=== PATIENT | male | born 1960 | race Caucasian/White ===

== ENCOUNTER 2017-08-06 08:49 | Day surgery (SDC) | payer OTHER ==
[~2017-08-06 08:49] MED LIST: DIPHENHYDRAMINE HCL 50 MG/ML VIAL ONE; EPINEPHRINE INJ 1 MG/10 ML DISP.SYRIN ONE; FENTANYL CITRATE INJ/PF 100 MCG/2 ML AMPUL ONE; FLUMAZENIL INJ 0.5 MG/5 ML VIAL ONE; GLUCAGON,HUMAN RECOMB 1 MG INJ ONE; NALOXONE HCL INJ/PF 0.4 MG/1 ML SDV ONE; ONDANSETRON HCL INJ/PF 4 MG/2 ML SDV ONE
[2017-08-06] MEDS: MIDAZOLAM 2 MG/2 ML INJ ONE ×2 (09:47→09:51)
[2017-08-06 11:04] VITALS: BP 132/78
--- NOTE | 2017-08-06 11:26 | Operative Report ---
Operative Report DATE OF SURGERY: 08/06/17 Operative Report: The risks benefits and alternatives of the procedure explained to the patient in detail and informed consent is obtained .A GIF Olympus video scope was inserted into the patient's mouth and hypopharynx, the esophagus is identified intubated and insufflated ,the scope was then advanced through the esophagus stomach and duodenum, retroflexion maneuver is done, the esophagus stomach and first and second portions of the duodenum examined PREOPERATIVE DIAGNOSIS: Dyspepsia evaluate for possible gastric sleeve surgery POSTOPERATIVE DIAGNOSIS: Possible singular gastric varix that is noted. No esophageal varices. Mild gastritis status post biopsy rule out Helicobacter pylori OPERATION: EGD with biopsy SURGEON: CORINE SOSA ANESTHESIA: Moderate Sedation - 4 mg of Versed, 50 mcg of fentanyl. Conscious sedation monitoring time 30 minutes. TISSUE REMOVED OR ALTERED: Gastric mucosal specimen obtained COMPLICATIONS: None. ESTIMATED BLOOD LOSS: None. INTRAOPERATIVE FINDINGS: As described above. PROCEDURE: Patient tolerated procedure well. No immediate postprocedure complications are noted. Patient discharged in good condition. Discharge date 08/06/2017. Discharge diet: Regular. Discharge activity: Regular. 2-3 week follow-up to discuss findings. We will wait on biopsies. Patient is instructed to call the office or proceed to the emergency room should there be any further problems or questions.
== END 2017-08-06 11:05 | disposition home or self-care (01) ==
LOC: END 08:49
PROVIDERS: ATTEND Internal Medicine Gastroenterology
PROC: 0DB68ZX Excision of Stomach, Via Natural or Artificial Opening Endoscopic, Diagnostic (ICD-10-PCS; principal; 2017-08-06 08:30)
DX: K74.60 Unspecified cirrhosis of liver (principal); K29.70 Gastritis, unspecified, without bleeding; E66.01 Morbid (severe) obesity due to excess calories; E03.9 Hypothyroidism, unspecified; F32.9 Major depressive disorder, single episode, unspecified; E78.5 Hyperlipidemia, unspecified; E11.22 Type 2 diabetes mellitus with diabetic chronic kidney disease; I12.9 Hypertensive chronic kidney disease with stage 1 through stage 4 chronic kidney disease, or unspecified chronic kidney disease; N18.3 Chronic kidney disease, stage 3 (moderate); E11.42 Type 2 diabetes mellitus with diabetic polyneuropathy; Z99.81 Dependence on supplemental oxygen; N40.0 Benign prostatic hyperplasia without lower urinary tract symptoms; G43.109 Migraine with aura, not intractable, without status migrainosus; G47.30 Sleep apnea, unspecified; Z68.43 Body mass index [BMI] 50.0-59.9, adult; Z79.899 Other long term (current) drug therapy; Z79.82 Long term (current) use of aspirin; Z79.4 Long term (current) use of insulin; Z87.891 Personal history of nicotine dependence
CPT/HCPCS: 43239; 82962; 88305 ×2; J2250; J3010; J0171; J1200; J1610; J2310; J2405; J3490

== ENCOUNTER 2017-09-06 09:15 | Day surgery (SDC) | payer OTHER ==
[~2017-09-06 09:15] MED LIST changes: -DIPHENHYDRAMINE HCL 50 MG/ML VIAL ONE; -EPINEPHRINE INJ 1 MG/10 ML DISP.SYRIN ONE; -FENTANYL CITRATE INJ/PF 100 MCG/2 ML AMPUL ONE; -FLUMAZENIL INJ 0.5 MG/5 ML VIAL ONE; -GLUCAGON,HUMAN RECOMB 1 MG INJ ONE; -NALOXONE HCL INJ/PF 0.4 MG/1 ML SDV ONE; -ONDANSETRON HCL INJ/PF 4 MG/2 ML SDV ONE; +PROPOFOL INJ 200 MG/20 ML VIAL IV ONE
[2017-09-06 11:01] VITALS: BP 153/79
--- NOTE | 2017-09-06 12:25 | Operative Report ---
Operative Report DATE OF SURGERY: 09/06/17 Operative Report: The risks, benefits and alternatives of the procedure including risks of bleeding, perforation requiring surgery are explained to the patient in detail and informed consent is obtained. The patient is placed in the left, lateral decubital position. Patient was taken to the endoscopy suite. Timeout was called. Propofol medications administered. A rectal examination is done which did not reveal any masses, tears or fissures. An Olympus videoscope was inserted into the patient's rectum. The scope was then carefully advanced all the way to the cecum. The cecum was identified by the usual anatomical landmarks including the ileocecal valve as well as the appendiceal office. Photodocumentation was obtained. The scope was then sequentially pulled back via the various segments of the colon including the ascending colon, hepatic flexure, transverse colon, splenic flexure, descending colon finding to the rectosigmoid portions of the colon. Retroflexion maneuvers performed. PREOPERATIVE DIAGNOSIS: Change in bowel habits rule out collagenous, lymphocytic , microscopic colitis. POSTOPERATIVE DIAGNOSIS: Right side colon biopsy obtained. Internal hemorrhoids OPERATION: Colonoscopy with biopsy SURGEON: CORINE SOSA ANESTHESIA: LMAC TISSUE REMOVED OR ALTERED: As noted above. COMPLICATIONS: None. ESTIMATED BLOOD LOSS: None. INTRAOPERATIVE FINDINGS: As described above. PROCEDURE: Patient tolerated the procedure well. No immediate postprocedure complications are noted. Patient discharged in good condition. Discharge date 09/06/2017. Discharge diet: Regular. Discharge activity: Regular. 2-3 week follow-up to discuss findings. Patient is instructed to call the office or proceed to the emergency room should there be any further problems or questions. We will wait on pathology. Surveillance colonoscopy 10 years.
== END 2017-09-06 10:51 | disposition home or self-care (01) ==
LOC: END 09:15
PROVIDERS: ATTEND Internal Medicine Gastroenterology
PROC: 0DBF8ZX Excision of Right Large Intestine, Via Natural or Artificial Opening Endoscopic, Diagnostic (ICD-10-PCS; principal; 2017-09-06 11:00)
DX: K57.30 Diverticulosis of large intestine without perforation or abscess without bleeding (principal); K64.8 Other hemorrhoids; E03.9 Hypothyroidism, unspecified; I12.9 Hypertensive chronic kidney disease with stage 1 through stage 4 chronic kidney disease, or unspecified chronic kidney disease; E11.22 Type 2 diabetes mellitus with diabetic chronic kidney disease; N18.3 Chronic kidney disease, stage 3 (moderate); G47.30 Sleep apnea, unspecified; F32.0 Major depressive disorder, single episode, mild; K74.60 Unspecified cirrhosis of liver; E87.5 Hyperkalemia; G43.109 Migraine with aura, not intractable, without status migrainosus; E11.42 Type 2 diabetes mellitus with diabetic polyneuropathy; Z79.4 Long term (current) use of insulin; Z87.891 Personal history of nicotine dependence; Z79.82 Long term (current) use of aspirin; Z79.51 Long term (current) use of inhaled steroids; Z99.81 Dependence on supplemental oxygen
CPT/HCPCS: 45380; 82962; 88305 ×2; J2704; 810

== ENCOUNTER 2017-12-02 14:36 | Emergency (ER) | payer SELFPAY ==
--- NOTE | 2017-12-02 15:47 | ER Document Report ---
ED General - General Chief Complaint: Shortness Of Breath Stated Complaint: WEIGHT GAIN/ABNORMAL LABS Time Seen by Provider: 12/02/17 15:29 TRAVEL OUTSIDE OF THE [place] IN LAST 30 DAYS: No - Related Data Allergies/Adverse Reactions: No Known Allergies Allergy (Verified 12/02/17 14:36) Past Medical History - General Information source: Patient, Relative - Social History Smoking Status: Former Smoker Cigarette use (# per day): No Chew tobacco use (# tins/day): No Smoking Education Provided: No Drug Abuse: None Lives with: Family Family History: Hypertension - Past Medical History Cardiac Medical History: Reports: Hx Coronary Artery Disease - HYPERLIPIDEMIA , Hx Hypertension Denies: Hx Heart Attack Pulmonary Medical History: Reports: Hx COPD Denies: Hx Asthma, Hx Bronchitis, Hx Pneumonia Neurological Medical History: Reports: Hx Migraine. Denies: Hx Cerebrovascular Accident, Hx Seizures Endocrine Medical History: Reports: Hx Diabetes Mellitus Type 2, Hx Hypothyroidism Renal/ Medical History: Reports: Hx Renal Insufficiency, Other - proteinuria Malignancy Medical History: Reports None GI Medical History: Reports: Hx Cirrhosis, Other - hep C-"cured" Musculoskeltal Medical History: Denies Hx Arthritis Skin Medical History: Reports None Psychiatric Medical History: Reports: Hx Depression Past Surgical History: Reports: None - Immunizations Hx Diphtheria, Pertussis, Tetanus Vaccination: Yes Hx Pneumococcal Vaccination: 08/01/17 Physical Exam - Vital signs Vitals: Temp Pulse Resp BP Pulse Ox 98.1 F 86 18 152/76 H 96 12/02/17 14:57 12/02/17 14:57 12/02/17 14:57 12/02/17 14:57 12/02/17 14:57 - Notes Notes: PHYSICAL EXAMINATION: GENERAL: Well-appearing, well-nourished and in no acute distress. HEAD: Atraumatic, normocephalic. EYES: Pupils equal round and reactive to light, extraocular movements intact, sclera anicteric, conjunctiva are normal. ENT: Nares patent, oropharynx clear without exudates. Moist mucous membranes. NECK: Normal range of motion, supple without lymphadenopathy LUNGS: Breath sounds clear to auscultation bilaterally and equal. No wheezes rales or rhonchi. HEART: Regular rate and rhythm 4/6 murmur ABDOMEN: Soft, nontender, nondistended abdomen. No guarding, no rebound. No masses appreciated. Edema to abdominal wall bilateral lower quadrants Musculoskeletal: Normal range of motion, +2 pitting edema bilateral lower extremities all the way up to his hip area no cyanosis. NEUROLOGICAL: Cranial nerves grossly intact. Normal speech. Normal sensory, motor exams PSYCH: Normal mood, normal affect. SKIN: Warm, Dry, normal turgor, no rashes or lesions noted. Course - Re-evaluation Re-evalutation: 12/02/17 15:45 I did see the patient. He did not have much information besides a [place] lab sheet. I did call over to Merary trey's office [phone] because he had just come from her office. She is supposed to fax me over his med list as well as his past medical history as the patient does not know this information. 12/02/17 17:[address] Lam he states with the patient on Lasix daily and have him follow -up as an outpatient. Patient's to call the office in the morning as I told the patient and his family member. I did talk to the patient extensively regarding his diet and the need to lose weight. He did seem to take the information to heart. Had lost a lot of weight was down to 220 pounds and felt great. I did tell him to cut out any sugary or processed foods from his diet and stick to lean meats fruits and veggies as well as to start walking even with this for 5-10 minutes daily. I did mention to the patient has been started on Lasix. At that moment he did state that he is on Lasix although not every day. I told him for the next few days to take it consistently. Patient is to call Dr. Lam in the morning for an appointment in the next few days. He is to return to the emergency department if he has worsening symptoms. He is to continue his Klor-Con as previously prescribed. - Vital Signs Vital signs: Temp Pulse Resp BP Pulse Ox 98.1 F 86 18 152/76 H 96 12/02/17 14:57 12/02/17 14:57 12/02/17 14:57 12/02/17 14:57 12/02/17 14:57 - Laboratory Result Diagrams: 12/02/17 16:04 12/02/17 16:04 Laboratory results interpreted by me: 12/02/17 12/02/17 12/02/17 16:04 16:04 16:04 RBC 3.92 L Hgb 10.9 L Hct 33.0 L RDW 15.3 H Plt Count 89 L Eosinophils % 6.3 H Chloride 113 H BUN 29 H Creatinine 2.05 H Est GFR ( Amer) 41 L Est GFR (Non-Af Amer) 34 L Glucose 170 H Alkaline Phosphatase 242 H Total Protein 4.9 L Albumin 2.4 L Urine Protein >=500 H Urine Glucose (UA) >=500 H - Diagnostic Test Radiology reviewed: Image reviewed, Reports reviewed Radiology results interpreted by me: 12/02/17 17:02 no acute findings chest x-ray - EKG Interpretation by Me EKG shows normal: Sinus rhythm - 87 When compared to previous EKG there are: Previous EKG unavailable Discharge - Discharge Clinical Impression: Edema extremities, Hypoalbuminemia, Chronic renal insufficiency, stage III ( moderate), Anemia Condition: Stable Disposition: HOME, SELF-CARE Instructions: Edema, Peripheral ([facility]), Kidney Function Abnormality ([facility]) Additional Instructions: Please take 40 mg of lasix daily for the next 4 days. The emergency department if you have worsening symptoms, inability to urinate, fevers, shortness of breath or any other concerns. Your copy of all your paperwork done here as well as the chart from Merary yang's office. Please bring this to all doctor's appointments including your appointment with Dr. Lam. Referrals: MERARY YANG PA-C [Primary Care Provider] - Follow up as needed Arabella LAM MD [ACTIVE STAFF] - Follow up tomorrow (Call office in the a.m. for appointment in the next few days. Please take Lasix 40 mg by mouth daily for the next 4 days.)
--- NOTE | 2017-12-02 16:05 | RADIOLOGY REPORT (SQ) ---
EXAM DESCRIPTION: CHEST PA/LAT COMPLETED DATE/TIME: 12/02/2017 3:45 pm REASON FOR STUDY: sob COMPARISON: None. EXAM PARAMETERS: NUMBER OF VIEWS: two views TECHNIQUE: Digital Frontal and Lateral radiographic views of the chest acquired. RADIATION DOSE: NA LIMITATIONS: none FINDINGS: LUNGS AND PLEURA: No opacities, masses or pneumothorax. No pleural effusion. MEDIASTINUM AND HILAR STRUCTURES: No masses or contour abnormalities. HEART AND VASCULAR STRUCTURES: Heart normal size. No evidence for failure. BONES: No acute findings. HARDWARE: Clips right upper quadrant post cholecystectomy OTHER: No other significant finding. IMPRESSION: NO SIGNIFICANT RADIOGRAPHIC FINDING IN THE CHEST. TECHNICAL DOCUMENTATION: JOB ID: [id number] [employer]- All Rights Reserved
[2017-12-02 16:25] LABS: ABSOLUTE EOSINOPHILS # (AUTO) 0.3 10^3/uL (0.0-0.6); ABSOLUTE LYMPHOCYTES (AUTO) 0.8 10^3/uL (0.5-4.7); ABSOLUTE MONOCYTES (AUTO) 0.4 10^3/uL (0.1-1.4); ABSOLUTE NEUT (AUTO) 2.5 10^3/uL (1.7-8.2); BASOPHILS % (AUTO) 0.8 % (0-2); EOSINOPHILS % (AUTO) 6.3 % (0-6); HEMOGLOBIN 10.9 g/dL (13.5-17.0); LYMPHOCYTES % (AUTO) 19.9 % (13-45); MEAN CORPUSCULAR HEMOGLOBIN 27.9 pg (27.0-33.4); MEAN CORPUSCULAR HGB CONC 33.1 g/dL (32.0-36.0); MEAN CORPUSCULAR VOLUME 84 fl (80-97); MONOCYTES % (AUTO) 9.4 % (3-13); RED BLOOD COUNT 3.92 10^6/uL (4.35-5.55); RED CELL DISTRIBUTION WIDTH 15.3 % (11.5-14.0); SEGMENTED NEUTROPHILS % (AUTO) 63.6 % (42-78); TOTAL CELLS COUNTED % (AUTO) 100 %
[2017-12-02 16:29] LABS: PLATELET COUNT 89 10^3/uL (150-450)
[2017-12-02 16:36] LABS: ALANINE AMINOTRANSFERASE 50 U/L (21-72); ALBUMIN 2.4 g/dL (3.5-5.0); ALKALINE PHOSPHATASE 242 U/L (38-126); ANION GAP 5 (5-19); ASPARTATE AMINO TRANSFERASE 41 U/L (17-59); BILIRUBIN,DIRECT 0.2 mg/dL (0.0-0.4); BILIRUBIN,TOTAL 0.3 mg/dL (0.2-1.3); BLOOD UREA NITROGEN 29 mg/dL (7-20); CALCIUM 8.8 mg/dL (8.4-10.2); CARBON DIOXIDE 23 mmol/L (22-30); CHLORIDE 113 mmol/L (98-107); GLUCOSE 170 mg/dL (75-110); MAGNESIUM 1.9 mg/dL (1.6-2.3); POTASSIUM 4.5 mmol/L (3.6-5.0); SODIUM 140.6 mmol/L (137-145); TOTAL PROTEIN 4.9 g/dL (6.3-8.2)
[2017-12-02 16:39] LABS: ALCOHOL < 10 mg/dL (NONE DETECTED)
[2017-12-02 16:47] LABS: NT PRO BNP 220 pg/mL (5-900)
[2017-12-02 16:50] LABS: TROPONIN I < 0.012 ng/mL
[2017-12-02] MEDS ORDERED: FUROSEMIDE INJ/PF 20 MG/2 ML SDV IV ONE (16:56)
--- NOTE | 2017-12-02 17:23 | EKG REPORT ---
SEVERITY:- NORMAL ECG - SINUS RHYTHM : Confirmed by: Krzysztof Avalos 02-Dec-2017 17:22:31
[2017-12-02 17:36] LABS: APPEARANCE,URINE CLEAR; BILIRUBIN,URINE NEGATIVE (NEGATIVE); COLOR,URINE YELLOW; GLUCOSE, URINE >=500 mg/dL (NEGATIVE); KETONES,URINE NEGATIVE (NEGATIVE); LEUKOCYTE ESTERASE,URINE NEGATIVE (NEGATIVE); NITRITE,URINE NEGATIVE (NEGATIVE); PROTEIN,URINE >=500 mg/dL (NEGATIVE); UROBILINOGEN,URINE NEGATIVE mg/dL (<2.0)
[2017-12-02 18:03] VITALS: BP 139/83
== END 2017-12-02 18:11 | disposition home or self-care (01) ==
LOC: ER 14:36
DX: R60.9 Edema, unspecified (principal); D63.1 Anemia in chronic kidney disease; E88.09 Other disorders of plasma-protein metabolism, not elsewhere classified; N18.3 Chronic kidney disease, stage 3 (moderate); R06.02 Shortness of breath; Z87.891 Personal history of nicotine dependence; E11.22 Type 2 diabetes mellitus with diabetic chronic kidney disease; I12.9 Hypertensive chronic kidney disease with stage 1 through stage 4 chronic kidney disease, or unspecified chronic kidney disease; J44.9 Chronic obstructive pulmonary disease, unspecified
CPT/HCPCS: 93005; 99285; 96374; 36415; 80307; 82140; 83735; 82570; 85025; 80053; 81001; 84484; 83880; 71046; 93010; J1940

== ENCOUNTER → 2018-04-21 | Outpatient (CLI) | payer BC ==
--- NOTE | 2018-04-21 19:20 | XCELERA REPORT ---
[address] [address] Transthoracic Echocardiogram Report Name: PATO GARNETT JR Age: 58 yrs Gender: Male : 1960 Patient Status: Outpatient Patient Location: [facility] Study Date: 04/21/2018 09:17 AM Height: 67 in Weight: 311 lb BSA: 2.4 m2 Procedure: A two-dimensional transthoracic echocardiogram with color flow and Doppler was performed. Study Quality: Technically suboptimal. Reason For Study: MURMUR History: MURMUR. Ordering Physician: MERARY ASH PA-C Performed By: Nate Ibanez Interpretation Summary Study Quality: Technically suboptimal. The left ventricle is normal in size. There is normal left ventricular wall thickness. LV EF is > than 60% Left ventricular systolic function is normal. Doppler measurements suggest impaired left ventricular relaxation, which is associated with grade I/IV or mild diastolic dysfunction The left ventricular wall motion is normal. There is no thrombus. The right ventricle is not well visualized secondary to technical limitations The left atrial size is normal. The interatrial septum is intact with no evidence for an atrial septal defect. There is no evidence of mitral valve prolapse. There is no vegetation seen on the mitral valve. There is no mitral valve stenosis. There is no mitral regurgitation noted. There is no aortic valvular vegetation. There is mild aortic stenosis There is a peak gradient of 16 mm of Hg. There is no LVOT obstruction. No hemodynamically significant valvular aortic stenosis. No aortic regurgitation is present. There is no tricuspid stenosis. There is a trace amount of tricuspid regurgitation Right ventricular systolic pressure is normal. RVSP is 24 mm of Hg , with RA mean of 5. The aortic root is not well visualized but is probably normal size. There is no pericardial effusion. MMode/2D Measurements & Calculations RVDd: 4.1 cm LVIDd: 4.2 cm FS: 36.5 % Ao root diam: 3.2 cm IVSd: 0.95 cm LVIDs: 2.7 cm EDV(Teich): 80.1 ml LVPWd: 1.1 cm ESV(Teich): 26.8 ml Ao root area: 8.0 cm2 EF(Teich): 66.6 % LA dimension: 3.6 cm Doppler Measurements & Calculations MV E max mattie: MV P1/2t max mattie: Ao V2 max: LV V1 max P.2 cm/sec 109.1 cm/sec 199.7 cm/sec 5.3 mmHg MV A max mattie: MV P1/2t: 52.9 msec Ao max PG: LV V1 max: 106.9 cm/sec 16.0 mmHg 115.0 cm/sec MV E/A: 0.97 MVA(P1/2t): 4.2 cm2 MV dec slope: 604.5 cm/sec2 MV dec time: 0.23 sec TV V2 max: PA V2 max: 216.0 cm/sec 102.0 cm/sec TV max PG: PA max P.2 mmHg 18.7 mmHg Left Ventricle The left ventricle is normal in size. There is normal left ventricular wall thickness. LV EF is > than 60%. Left ventricular systolic function is normal. Doppler measurements suggest impaired left ventricular relaxation, which is associated with grade I/IV or mild diastolic dysfunction. The left ventricular wall motion is normal. There is no thrombus. There is no ventricular septal defect visualized. Right Ventricle The right ventricle is not well visualized secondary to technical limitations. Atria The right atrium is normal. The left atrial size is normal. The interatrial septum is intact with no evidence for an atrial septal defect. Mitral Valve There is mild mitral annular calcification. There is no evidence of mitral valve prolapse. There is no vegetation seen on the mitral valve. There is no mitral valve stenosis. There is no mitral regurgitation noted. Aortic Valve There is no aortic valvular vegetation. There is mild aortic stenosis. There is a peak gradient of 16 mm of Hg. There is no LVOT obstruction. No hemodynamically significant valvular aortic stenosis. No aortic regurgitation is present. Tricuspid Valve There is no tricuspid stenosis. There is a trace amount of tricuspid regurgitation. Right ventricular systolic pressure is normal. RVSP is 24 mm of Hg , with RA mean of 5. Pulmonic Valve There is no pulmonic valvular stenosis. There is no pulmonic valvular regurgitation. Great Vessels The aortic root is not well visualized but is probably normal size. Effusions There is no pericardial effusion. : MERARY ASH PA-C > Ailin Bean
== END ==
LOC: SP 08:45
PROVIDERS: ATTEND Physician Assistant
DX: R01.1 Cardiac murmur, unspecified (principal)
CPT/HCPCS: 93306

== ENCOUNTER → 2018-05-19 | Outpatient (CLI) | payer BC ==
--- NOTE | 2018-05-19 09:34 | RADIOLOGY REPORT (SQ) ---
EXAM DESCRIPTION: U/S ABDOMEN COMPLETE W/DOPPLER COMPLETED DATE/TIME: 05/19/2018 9:13 am REASON FOR STUDY: HX OF CIRRHOSIS (Z87.19) Z87.19 PERSONAL HISTORY OF OTHER DISEASES OF THE DIGESTI VE S COMPARISON: None. TECHNIQUE: Dynamic and static grayscale images acquired of the abdomen and recorded on PACS. Additio nal selected color Doppler and spectral images recorded. LIMITATIONS: Limited visualization secondary to body habitus and overlying bowel gas. FINDINGS: PANCREAS: Not visualized LIVER: Normal size. 16.4 cm. No masses. Echotexture appears normal however accuracy compromised by limited visualization. LIVER VASCULATURE: Normal directional flow of the main portal vein and hepatic veins. GALLBLADDER: Surgically absent. ULTRASOUND-DETECTED PACK'S SIGN: Negative. INTRAHEPATIC DUCTS AND COMMON DUCT: CBD and intrahepatic ducts normal caliber. No filling defects. INFERIOR VENA CAVA: Not visualized AORTA: Not visualized RIGHT KIDNEY: Normal size. Normal echogenicity. Questionable 4 cm cyst poorly visualized. No h ydronephrosis. No calcifications. LEFT KIDNEY: Normal size. Normal echogenicity. No solid or suspicious masses. No hydronephrosi s. No calcifications. SPLEEN: Mild splenomegaly. 15 cm in length. PERITONEAL AND PLEURAL SPACES: No ascites or effusions. OTHER: No other significant finding. IMPRESSION: Limited visualization secondary to body habitus and overlying bowel gas. Pancreas, aort a and inferior vena cava not visualized. No hepatic masses. Borderline splenomegaly. Questionable cyst left kidney suboptimally visualized. Status post cholecystectomy. TECHNICAL DOCUMENTATION: JOB ID: [id number] [employer]- All Rights Reserved Reading location - IP/workstation name: [email or web address]
--- NOTE | 2018-05-19 12:30 | RADIOLOGY REPORT (SQ) ---
EXAM DESCRIPTION: CT ABDOMEN ORAL CONTRAST ONLY COMPLETED DATE/TIME: 05/19/2018 11:56 am REASON FOR STUDY: HX OF CIRRHOSIS (Z87.19) Z87.19 PERSONAL HISTORY OF OTHER DISEASES OF THE DIGESTI VE S COMPARISON: None. TECHNIQUE: CT scan of the abdomen performed without intravenous contrast and with oral contrast. Im ages reviewed with lung, soft tissue, and bone windows. Reconstructed coronal and sagittal MPR image s reviewed. All images stored on PACS. All CT scanners at this facility use dose modulation, iterative reconstruction, and/or weight based d osing when appropriate to reduce radiation dose to as low as reasonably achievable (ALARA). [facility]: Dose Right [facility]: CareDose [facility]: Dose Right [facility]: Teradose 4D [facility]: Smart Health Data Vision RADIATION DOSE: CT Rad equipment meets quality standard of care and radiation dose reduction techniq ues were employed. CTDIvol: 29.2 mGy. DLP: 1223 mGy-cm.mGy. LIMITATIONS: None. FINDINGS: LOWER CHEST: No significant findings. No nodules or infiltrates. NONCONTRASTED LIVER, SPLEEN, ADRENALS: Normal size has nodular contour from cirrhosis, with a recann alized umbilical vein from portal hypertension. Splenomegaly 18 cm in length. Varices at the GE santy ction. Small amount of right upper quadrant and right lower quadrant ascites. PANCREAS: No masses. No peripancreatic inflammatory changes. GALLBLADDER: Surgically absent. RIGHT KIDNEY AND URETER: No suspicious masses. Assessment limited by lack of IV contrast. No signif icant calcifications. No hydronephrosis or hydroureter. LEFT KIDNEY AND URETER: No suspicious masses. Assessment limited by lack of IV contrast. No signifi cant calcifications. No hydronephrosis or hydroureter. AORTA AND RETROPERITONEUM: No aneurysm. No retroperitoneal masses or adenopathy. BOWEL AND PERITONEAL CAVITY: Patient drank oral contrast. No obvious masses or inflammatory changes . No free fluid. APPENDIX: Normal. ABDOMINAL WALL: No abdominal wall hernias. BONES: No significant findings. OTHER: No other significant finding. IMPRESSION: Nodular liver from cirrhosis. Recannulized umbilical vein with varices at the GE juncti on, splenomegaly, and trace ascites from portal hypertension Post cholecystectomy TECHNICAL DOCUMENTATION: JOB ID: [id number] Quality ID # [id number]: Final reports with documentation of one or more dose reduction techniques (e.g., Au tomated exposure control, adjustment of the mA and/or kV according to patient size, use of iterative reconstruction technique) 2010 [employer]- All Rights Reserved Reading location - IP/workstation name: [email or web address]
== END ==
LOC: RAD 08:20
PROVIDERS: ATTEND Internal Medicine Gastroenterology
DX: K74.60 Unspecified cirrhosis of liver (principal); K76.6 Portal hypertension; R16.1 Splenomegaly, not elsewhere classified
CPT/HCPCS: 74150; 76700; 82565; 93976

== ENCOUNTER → 2018-09-29 | Outpatient (CLI) | payer BC, MEDICARE ==
[2018-09-29 12:02] LABS: ANION GAP 10 (5-19); BLOOD UREA NITROGEN 45 mg/dL (7-20); CALCIUM 9.2 mg/dL (8.4-10.2); CARBON DIOXIDE 21 mmol/L (22-30); CHLORIDE 112 mmol/L (98-107); GLUCOSE 140 mg/dL (75-110); POTASSIUM 4.8 mmol/L (3.6-5.0)
== END ==
LOC: OD 10:53
PROVIDERS: ATTEND Internal Medicine Gastroenterology
DX: K74.60 Unspecified cirrhosis of liver (principal)
CPT/HCPCS: 36415; 80048; 82172; 82247; 82977; 83010; 83883; 84460

== ENCOUNTER 2018-09-30 08:08 | Day surgery (SDC) | payer BC, MEDICAID, MEDICARE ==
[2018-09-30] MEDS ORDERED: PROMETHAZINE HCL INJ 25 MG/1 ML VIAL IV PRN ×2 (10:47)
[2018-09-30] MEDS ORDERED: MEPERIDINE HCL/PF INJ 25 MG/1 ML DISP.SYRIN IV PRN (10:47)
[2018-09-30] MEDS ORDERED: OXYCODONE-ACETAMINOPHEN 5-325 MG TABLET PO PRN ×2 (10:47)
[2018-09-30] MEDS ORDERED: FENTANYL CITRATE INJ/PF 100 MCG/2 ML AMPUL IV PRN ×3 (10:47)
[2018-09-30] MEDS ORDERED: DIPHENHYDRAMINE HCL 50 MG/ML VIAL IV PRN (10:47)
[2018-09-30] MEDS ORDERED: PROMETHAZINE HCL INJ 25 MG/1 ML VIAL INJ PRN (11:15)
[2018-09-30] MEDS ORDERED: SIMETHICONE 80 MG TAB.CHEW PO PRN (11:15)
[2018-09-30] MEDS ORDERED: DEXTROSE 5%-1/2 NORMAL SALINE 1,000 ML IV PRN (11:15)
[2018-09-30] MEDS ORDERED: ACETAMINOPHEN 325 MG TABLET PO PRN (11:15)
[2018-09-30 12:07] VITALS: BP 138/88
--- NOTE | 2018-09-30 12:38 | Operative Report ---
Operative Report DATE OF SURGERY: 09/30/18 Operative Report: The risks benefits and alternatives of the procedure explained to the patient in detail and informed consent is obtained.A GIF Olympus video scope was inserted into the patient's mouth and hypopharynx ,the esophagus is identified intubated and insufflated, the scope was then advanced through the esophagus stomach and duodenum ,retroflexion maneuver is done the esophagus stomach and first and second portions of the duodenum examined PREOPERATIVE DIAGNOSIS: Cirrhosis. Follow-up on varices POSTOPERATIVE DIAGNOSIS: Gastritis status post biopsy. Duodenitis. No evidence of esophageal varices. Gastric varices are noted unchanged from prior exam OPERATION: Colonoscopy with biopsy SURGEON: CORINE SOSA ANESTHESIA: LMAC TISSUE REMOVED OR ALTERED: As noted above COMPLICATIONS: None. ESTIMATED BLOOD LOSS: None. INTRAOPERATIVE FINDINGS: As noted above. PROCEDURE: Patient tolerated the procedure well. No immediate postprocedure complications are noted. Patient discharged in good condition. Discharge date 09/30/2018. Discharge diet: Regular. Discharge activity: Regular. 2-3-week follow-up to discuss findings. Patient is instructed call the office or proceed to the emergency room should there be any further proximal questions.
== END 2018-09-30 12:15 | disposition home or self-care (01) ==
LOC: OROUT 08:08
PROVIDERS: ATTEND Internal Medicine Gastroenterology
DX: K74.60 Unspecified cirrhosis of liver (principal); K29.80 Duodenitis without bleeding; K29.50 Unspecified chronic gastritis without bleeding; Z87.891 Personal history of nicotine dependence; E03.9 Hypothyroidism, unspecified; I12.9 Hypertensive chronic kidney disease with stage 1 through stage 4 chronic kidney disease, or unspecified chronic kidney disease; E11.22 Type 2 diabetes mellitus with diabetic chronic kidney disease; N18.3 Chronic kidney disease, stage 3 (moderate); E78.5 Hyperlipidemia, unspecified; G47.33 Obstructive sleep apnea (adult) (pediatric); E11.42 Type 2 diabetes mellitus with diabetic polyneuropathy; Z79.4 Long term (current) use of insulin; Z99.81 Dependence on supplemental oxygen; Z79.51 Long term (current) use of inhaled steroids; Z79.82 Long term (current) use of aspirin; Z79.899 Other long term (current) drug therapy
CPT/HCPCS: 43239; 82962; 88305 ×2; J2704; 731

== ENCOUNTER → 2018-10-27 | Outpatient (CLI) | payer BC, MEDICARE ==
--- NOTE | 2018-10-27 11:10 | RADIOLOGY REPORT (SQ) ---
EXAM DESCRIPTION: MRI ABDOMEN WITHOUT COMPLETED DATE/TIME: 10/27/2018 10:52 am REASON FOR STUDY: K74.60 UNSPECIFIED CIRRHOSIS OF LIVER K74.60 UNSPECIFIED CIRRHOSIS OF LIVER COMPARISON: None. Correlation: CT 05/19/2018. TECHNIQUE: T1 in and out of phase, T2 and diffusion weighted sequences without contrast. No contras t given due to calculated GFR of 24. FINDINGS: Sub capsular nodularity consistent with clinical history of cirrhosis. No obvious hepatic mass. Splenomegaly, gastric varices, recannulized umbilical vein. Prior cholecystectomy. No adren al mass. Small cortical cyst left kidney. No pancreatic mass. No bowel obstruction. No aortic ane urysm. No ascites. Lung bases are clear. IMPRESSION: Limitations due to relative contraindication for contrast. Cirrhosis, splenomegaly and portal hypertension. No ascites. TECHNICAL DOCUMENTATION: JOB ID: [id number] [employer]- All Rights Reserved Reading location - IP/workstation name: [email or web address]
== END ==
LOC: RAD 11:35
PROVIDERS: ATTEND Internal Medicine
DX: K74.60 Unspecified cirrhosis of liver (principal); K75.81 Nonalcoholic steatohepatitis (NASH); Z12.89 Encounter for screening for malignant neoplasm of other sites; N18.9 Chronic kidney disease, unspecified
CPT/HCPCS: 74181; 82565

== ENCOUNTER 2019-09-19 16:21 | Emergency (ER) | payer BC, MEDICARE ==
[2019-09-19 16:58] LABS: ABSOLUTE EOSINOPHILS # (AUTO) 0.2 10^3/uL (0.0-0.6); ABSOLUTE LYMPHOCYTES (AUTO) 0.9 10^3/uL (0.5-4.7); ABSOLUTE MONOCYTES (AUTO) 0.3 10^3/uL (0.1-1.4); ABSOLUTE NEUT (AUTO) 2.8 10^3/uL (1.7-8.2); BASOPHILS % (AUTO) 0.5 % (0-2); EOSINOPHILS % (AUTO) 3.8 % (0-6); HEMATOCRIT 34.8 % (37.9-51.0); HEMOGLOBIN 11.9 g/dL (13.5-17.0); LYMPHOCYTES % (AUTO) 21.7 % (13-45); MEAN CORPUSCULAR HEMOGLOBIN 29.2 pg (27.0-33.4); MEAN CORPUSCULAR VOLUME 86 fl (80-97); MONOCYTES % (AUTO) 7.6 % (3-13); RED BLOOD COUNT 4.06 10^6/uL (4.35-5.55); RED CELL DISTRIBUTION WIDTH 14.4 % (11.5-14.0); SEGMENTED NEUTROPHILS % (AUTO) 66.4 % (42-78); TOTAL CELLS COUNTED % (AUTO) 100 %; WHITE BLOOD COUNT 4.2 10^3/uL (4.0-10.5)
[2019-09-19 17:15] LABS: ALBUMIN 2.8 g/dL (3.5-5.0); ALKALINE PHOSPHATASE 210 U/L (38-126); ANION GAP 7 (5-19); ASPARTATE AMINO TRANSFERASE 39 U/L (17-59); BILIRUBIN,DIRECT 0.2 mg/dL (0.0-0.4); BILIRUBIN,TOTAL 0.3 mg/dL (0.2-1.3); BLOOD UREA NITROGEN 39 mg/dL (7-20); CALCIUM 8.2 mg/dL (8.4-10.2); CARBON DIOXIDE 20 mmol/L (22-30); CHLORIDE 116 mmol/L (98-107); GLUCOSE 82 mg/dL (75-110); POTASSIUM 4.5 mmol/L (3.6-5.0); TOTAL PROTEIN 5.7 g/dL (6.3-8.2)
[2019-09-19 17:18] LABS: PLATELET COUNT 78 10^3/uL (150-450)
[2019-09-19 17:30] LABS: APPEARANCE,URINE CLEAR; BILIRUBIN,URINE NEGATIVE (NEGATIVE); COLOR,URINE YELLOW; GLUCOSE, URINE >=500 mg/dL (NEGATIVE); KETONES,URINE NEGATIVE (NEGATIVE); LEUKOCYTE ESTERASE,URINE NEGATIVE (NEGATIVE); NITRITE,URINE NEGATIVE (NEGATIVE); PROTEIN,URINE >=500 mg/dL (NEGATIVE); URINE SPECIFIC GRAVITY 1.012; UROBILINOGEN,URINE NEGATIVE mg/dL (<2.0)
[2019-09-19] MEDS ORDERED: OXYCODONE-ACETAMINOPHEN 5-325 MG TABLET PO ONE (17:46)
--- NOTE | 2019-09-19 18:19 | RADIOLOGY REPORT (SQ) ---
EXAM DESCRIPTION: CT ABD/PELVIS NO ORAL OR IV COMPLETED DATE/TIME: 09/19/2019 5:55 pm REASON FOR STUDY: lt flank pain COMPARISON: CT abdomen pelvis 05/19/2018 TECHNIQUE: CT scan of the abdomen and pelvis performed without intravenous or oral contrast. Images reviewed with lung, soft tissue, and bone windows. Reconstructed coronal and sagittal MPR images revi ewed. All images stored on PACS. All CT scanners at this facility use dose modulation, iterative reconstruction, and/or weight based d osing when appropriate to reduce radiation dose to as low as reasonably achievable (ALARA). [facility]: Dose Right [facility]: CareDose [facility]: Dose Right [facility]: Teradose 4D [facility]: Smart [employer] RADIATION DOSE: CT Rad equipment meets quality standard of care and radiation dose reduction techniq ues were employed. CTDIvol: 19.2 mGy. DLP: 1058 mGy-cm.mGy. LIMITATIONS: None. FINDINGS: LOWER CHEST: No significant findings. No nodules or infiltrates. NON-CONTRASTED LIVER, SPLEEN, ADRENALS: Evaluation limited by lack of IV contrast. Micronodular cont our of the liver. Splenomegaly. Gastric varices. PANCREAS: No masses. No peripancreatic inflammatory changes. GALLBLADDER: Surgically absent. RIGHT KIDNEY AND URETER: No suspicious masses. Assessment limited by lack of IV contrast. No signif icant calcifications. No hydronephrosis or hydroureter. LEFT KIDNEY AND URETER: No suspicious masses. Assessment limited by lack of IV contrast. No signifi cant calcifications. No hydronephrosis or hydroureter. AORTA AND RETROPERITONEUM: No aneurysm. No retroperitoneal masses or adenopathy. BOWEL AND PERITONEAL CAVITY: Mild and descending colon diverticulosis. No obvious masses or inflamma tory changes. No free fluid. APPENDIX: Normal. PELVIS, BLADDER, AND ABDOMINAL WALL:No abnormal masses. No free fluid. Bladder normal. BONES: No significant findings. OTHER: No other significant finding. IMPRESSION: No urolithiasis or other acute CT abdominal findings. Mild colonic diverticulosis without evidence of acute diverticulitis. Cirrhosis and findings of portal hypertension. COMMENT: Quality ID # 436: Final reports with documentation of one or more dose reduction techniques (e.g., Automated exposure control, adjustment of the mA and/or kV according to patient size, use of iterative reconstruction technique) TECHNICAL DOCUMENTATION: JOB ID: [id number]- All Rights Reserved Reading location - IP/workstation name: [email or web address]
--- NOTE | 2019-09-19 19:20 | ER Document Report ---
ED General - General Chief Complaint: Flank Pain Stated Complaint: LEFT SIDE PAIN Time Seen by Provider: 09/19/19 17:26 Primary Care Provider: MERARY ASH PA-C [Primary Care Provider] - Follow up as needed TRAVEL OUTSIDE OF THE [place] IN LAST 30 DAYS: No - Related Data Allergies/Adverse Reactions: No Known Allergies Allergy (Verified 09/30/18 08:42) Past Medical History - Social History Smoking Status: Former Smoker Chew tobacco use (# tins/day): No Frequency of alcohol use: None Drug Abuse: None Family History: Hypertension Patient has suicidal ideation: No Patient has homicidal ideation: No - Past Medical History Cardiac Medical History: Reports: Hx Coronary Artery Disease - HYPERLIPIDEMIA , Hx Hypertension Denies: Hx Heart Attack Pulmonary Medical History: Reports: Hx COPD - 2L oxygen QHS Denies: Hx Asthma, Hx Bronchitis, Hx Pneumonia Neurological Medical History: Reports: Hx Migraine. Denies: Hx Cerebrovascular Accident, Hx Seizures Endocrine Medical History: Reports: Hx Diabetes Mellitus Type 2, Hx Hypothyroidism Renal/ Medical History: Reports: Hx Renal Insufficiency. Denies: Hx Peritoneal Dialysis GI Medical History: Reports: Hx Cirrhosis Musculoskeletal Medical History: Denies Hx Arthritis Psychiatric Medical History: Reports: Hx Depression Past Surgical History: Reports: Hx Cholecystectomy - Immunizations Hx Diphtheria, Pertussis, Tetanus Vaccination: Yes Hx Pneumococcal Vaccination: 08/01/17 Physical Exam - Vital signs Vitals: Resp BP Pulse Ox 16 140/80 H 98 09/19/19 19:00 09/19/19 19:00 09/19/19 19:00 - Notes Notes: Patient presents emerged department complaining of left flank pain is been gone for the past 3 days. His pain came on acutely. It feels different from his previous kidney stone. Yesterday pain shoulder rating around to his left side. But also started going down into his buttocks and the back of his left leg stated with some numbness weakness in the left leg as well as some numbness in his foot he said he developed some numbness in his right leg today but no we akness. His left buttocks feels numb he has not had any bowel or bladder function. Indicates he has had chronic back problems with flareups but usually does not get the weakness at all. Had a little bit of nausea but no vomiting fevers or abdominal pain chest pain or shortness of breath pain is worse with moving. Reports that he fell earlier today because of the pain landing on his left shoulder. Did not hit his head Medical history is number for chronic insufficiency diabetes cirrhosis with ascites and chronic low back pain PHYSICAL EXAMINATION: Vital signs were noted triage note reviewed GENERAL: Well-appearing, well-nourished and in no acute distress. HEAD: Atraumatic, normocephalic. EYES: Pupils equal round and reactive to light, extraocular movements intact, sclera anicteric, conjunctiva are normal. ENT: nares patent, oropharynx clear without exudates. Moist mucous membranes. NECK: Normal range of motion, supple without lymphadenopathy nontender in the midline LUNGS: Breath sounds clear to auscultation bilaterally and equal. No wheezes rales or rhonchi. HEART: Regular rate and rhythm without murmurs ABDOMEN: Soft, nontender, normoactive bowel sounds. Morbidly obese is got a chronic hyperpigmented lesion across his lower abdominal wall EXTREMITIES: He has a several superficial abrasions to the dorsal aspect of his left forearm not infected. Elbow and wrist are nontender. Lower extremities are nontender NEUROLOGICAL: Cranial she has symmetrical smile facial expressions. His motor strength is 5/5 bilaterally in the upper lower extremities his toes are downgoing he has no pain with straight leg raise. Sensation is intact to pinprick and light touch in the upper lower extremities in the perineal area. He has good plantar reflex gait was normal per triage PSYCH: Normal mood, normal affect. SKIN: Warm, Dry, normal turgor, no rashes or lesions noted.\ Back he has some mild tenderness with sitting there is mild tenderness over the left costophrenic angle that extends to the paravertebral area there is no pain on the right paravertebral area Course - Re-evaluation Re-evalutation: 09/19/19 20:57 ED patient is remained stable he was given 1 dose of Percocet as he is resting more comfortably. Medical decision making patient presents with lower back pain. He is known to have a kidney stone and no blood in his urine. I suspect this is an exacerbation of his chronic back pain that is going down his leg. He has no neurological deficits no signs of a cauda equina syndrome looks well and can be discharged home peer to be given prescription prescription for oxycodone so we can avoid Tylenol he was warned about side effects medication also placed on steroids rest and follow-up with his family doctor in 3 to 5 days results of laboratory studies and diagnostic tests were discussed with patient and family and treatment plan discussed questions answered - Vital Signs Vital signs: Temp Pulse Resp BP Pulse Ox 97.8 F 74 22 H 126/74 H 97 09/19/19 19:51 09/19/19 19:51 09/19/19 20:01 09/19/19 20:00 09/19/19 20:01 - Laboratory Result Diagrams: 09/19/19 16:30 09/19/19 16:30 Laboratory results interpreted by me: 09/19/19 09/19/19 09/19/19 16:30 16:30 16:39 RBC 4.06 L Hgb 11.9 L Hct 34.8 L RDW 14.4 H Plt Count 78 L Chloride 116 H Carbon Dioxide 20 L BUN 39 H Creatinine 2.74 H Est GFR ( Amer) 29 L Est GFR (MDRD) Non-Af 24 L POC Glucose Calcium 8.2 L Alkaline Phosphatase 210 H Total Protein 5.7 L Albumin 2.8 L Urine Protein >=500 H Urine Glucose (UA) >=500 H Urine Blood SMALL H 09/19/19 19:47 RBC Hgb Hct RDW Plt Count Chloride Carbon Dioxide BUN Creatinine Est GFR ( Amer) Est GFR (MDRD) Non-Af POC Glucose 136 H Calcium Alkaline Phosphatase Total Protein Albumin Urine Protein Urine Glucose (UA) Urine Blood 09/19/19 21:00 Labs were reviewed previous BUN and creatinine last September were 45 and 20 and his bicarb was 20 lightless sure 89 last year. Repeat Accu-Chek was 36 - Diagnostic Test Radiology reviewed: Reports reviewed Discharge - Discharge Clinical Impression: Sciatica associated with disorder of lumbar spine Disposition: HOME, SELF-CARE Instructions: Sciatica ([facility]) Additional Instructions: Rest,, follow your sugar closely as the prednisone may cause her to go higher, follow-up with your kidney doctor in 1 week. Follow-up with your family doctor in 3 to 5 days if not better pain medicines may cause drowsiness Prescriptions: Prednisone [Deltasone] 20 mg PO TID #15 tablet Oxycodone HCl [Oxycodone HCl 10 MG Tablet] 1 - 2 tab PO Q6H PRN #10 tablet PRN Reason: PAIN Referrals: MERARY ASH PA-C [Primary Care Provider] - Follow up as needed
[2019-09-19 21:18] VITALS: BP 139/82
== END 2019-09-19 21:19 | disposition home or self-care (01) ==
LOC: ER 16:21
DX: M54.30 Sciatica, unspecified side (principal); R10.9 Unspecified abdominal pain; Z87.891 Personal history of nicotine dependence; I25.10 Atherosclerotic heart disease of native coronary artery without angina pectoris; I10 Essential (primary) hypertension; J44.9 Chronic obstructive pulmonary disease, unspecified; Z99.81 Dependence on supplemental oxygen; E11.9 Type 2 diabetes mellitus without complications
CPT/HCPCS: 36415; 74176; 80053; 81001; 82962; 83690; 85025; 99284

== ENCOUNTER → 2020-02-27 | Outpatient (CLI) | payer SELFPAY ==
[2020-02-27 15:17] LABS: AMORPHOUS SEDIMENT,URINE TRACE /HPF; APPEARANCE,URINE CLEAR; BILIRUBIN,URINE NEGATIVE (NEGATIVE); COLOR,URINE YELLOW; GLUCOSE, URINE >=500 mg/dL (NEGATIVE); KETONES,URINE NEGATIVE (NEGATIVE); LEUKOCYTE ESTERASE,URINE NEGATIVE (NEGATIVE); NITRITE,URINE NEGATIVE (NEGATIVE); PROTEIN,URINE >=500 mg/dL (NEGATIVE); URINE SPECIFIC GRAVITY 1.015; UROBILINOGEN,URINE NEGATIVE mg/dL (<2.0)
[2020-02-27 15:21] LABS: ABSOLUTE EOSINOPHILS # (AUTO) 0.2 10^3/uL (0.0-0.6); ABSOLUTE LYMPHOCYTES (AUTO) 0.7 10^3/uL (0.5-4.7); ABSOLUTE MONOCYTES (AUTO) 0.2 10^3/uL (0.1-1.4); ABSOLUTE NEUT (AUTO) 3.5 10^3/uL (1.7-8.2); BASOPHILS % (AUTO) 0.4 % (0-2); EOSINOPHILS % (AUTO) 3.6 % (0-6); HEMATOCRIT 34.7 % (37.9-51.0); HEMOGLOBIN 11.8 g/dL (13.5-17.0); LYMPHOCYTES % (AUTO) 15.7 % (13-45); MEAN CORPUSCULAR HEMOGLOBIN 29.3 pg (27.0-33.4); MEAN CORPUSCULAR HGB CONC 33.8 g/dL (32.0-36.0); MEAN CORPUSCULAR VOLUME 87 fl (80-97); MONOCYTES % (AUTO) 5.1 % (3-13); RED BLOOD COUNT 4.01 10^6/uL (4.35-5.55); RED CELL DISTRIBUTION WIDTH 14.3 % (11.5-14.0); SEGMENTED NEUTROPHILS % (AUTO) 75.2 % (42-78); TOTAL CELLS COUNTED % (AUTO) 100 %; WHITE BLOOD COUNT 4.7 10^3/uL (4.0-10.5)
[2020-02-27 15:38] LABS: ALBUMIN 3.2 g/dL (3.5-5.0); ALKALINE PHOSPHATASE 318 U/L (38-126); ANION GAP 7 (5-19); ASPARTATE AMINO TRANSFERASE 72 U/L (17-59); BILIRUBIN,DIRECT 0.1 mg/dL (0.0-0.4); BILIRUBIN,TOTAL 0.4 mg/dL (0.2-1.3); BLOOD UREA NITROGEN 61 mg/dL (7-20); CALCIUM 8.9 mg/dL (8.4-10.2); CARBON DIOXIDE 22 mmol/L (22-30); CHLORIDE 110 mmol/L (98-107); GLUCOSE 348 mg/dL (75-110); PHOSPHORUS 3.5 mg/dL (2.5-4.5); TOTAL PROTEIN 6.2 g/dL (6.3-8.2)
[2020-02-27 15:58] LABS: PLATELET COUNT 78 10^3/uL (150-450)
[2020-02-27 16:08] LABS: URINE PROTEIN 941.4 mg/dL (<12)
[2020-02-27 16:09] LABS: UR PRO/CREAT RATIO RESULT 7.5 mg/mg (0.0-0.2); URINE CREATININE 124.8 mg/dL (22-328)
== END ==
LOC: OD 14:22
PROVIDERS: ATTEND Internal Medicine Nephrology
DX: E11.22 Type 2 diabetes mellitus with diabetic chronic kidney disease (principal); I12.9 Hypertensive chronic kidney disease with stage 1 through stage 4 chronic kidney disease, or unspecified chronic kidney disease; N18.3 Chronic kidney disease, stage 3 (moderate); R80.9 Proteinuria, unspecified; E87.2 Acidosis; N25.0 Renal osteodystrophy
CPT/HCPCS: 36415; 80053; 81001; 82306; 82570; 83970; 84100; 84156; 85025

== ENCOUNTER 2020-11-29 12:30 | Emergency (ER) | payer MEDICAID, MEDICARE ==
[2020-11-29 13:08] LABS: ABSOLUTE EOSINOPHILS # (AUTO) 0.2 10^3/uL (0.0-0.6); ABSOLUTE MONOCYTES (AUTO) 0.3 10^3/uL (0.1-1.4); ABSOLUTE NEUT (AUTO) 3.3 10^3/uL (1.7-8.2); BASOPHILS % (AUTO) 0.9 % (0-2); EOSINOPHILS % (AUTO) 4.3 % (0-6); HEMATOCRIT 33.8 % (37.9-51.0); HEMOGLOBIN 11.7 g/dL (13.5-17.0); MEAN CORPUSCULAR HEMOGLOBIN 28.9 pg (27.0-33.4); MEAN CORPUSCULAR HGB CONC 34.7 g/dL (32.0-36.0); MEAN CORPUSCULAR VOLUME 83 fl (80-97); MONOCYTES % (AUTO) 7.2 % (3-13); RED BLOOD COUNT 4.06 10^6/uL (4.35-5.55); RED CELL DISTRIBUTION WIDTH 13.6 % (11.5-14.0); SEGMENTED NEUTROPHILS % (AUTO) 67.6 % (42-78); TOTAL CELLS COUNTED % (AUTO) 100 %; WHITE BLOOD COUNT 4.8 10^3/uL (4.0-10.5)
[2020-11-29 13:25] LABS: ALBUMIN 3.2 g/dL (3.5-5.0); ALKALINE PHOSPHATASE 174 U/L (38-126); ANION GAP 6 (5-19); ASPARTATE AMINO TRANSFERASE 44 U/L (17-59); BILIRUBIN,DIRECT 0.2 mg/dL (0.0-0.4); BILIRUBIN,TOTAL 0.7 mg/dL (0.2-1.3); BLOOD UREA NITROGEN 64 mg/dL (7-20); CALCIUM 8.6 mg/dL (8.4-10.2); CARBON DIOXIDE 20 mmol/L (22-30); CHLORIDE 107 mmol/L (98-107); CREATINE KINASE 91 U/L (55-170); GLUCOSE 276 mg/dL (75-110); POTASSIUM 4.4 mmol/L (3.6-5.0)
[2020-11-29 13:35] LABS: CREATINE KINASE MB 1.75 ng/mL (<4.55)
[2020-11-29 13:39] LABS: PLATELET COUNT 74 10^3/uL (150-450); TROPONIN I < 0.012 ng/mL
[2020-11-29 17:01] LABS: APPEARANCE,URINE CLEAR; BILIRUBIN,URINE NEGATIVE (NEGATIVE); COLOR,URINE YELLOW; GLUCOSE, URINE 150 mg/dL (NEGATIVE); KETONES,URINE NEGATIVE (NEGATIVE); LEUKOCYTE ESTERASE,URINE NEGATIVE (NEGATIVE); NITRITE,URINE NEGATIVE (NEGATIVE); PROTEIN,URINE >=500 mg/dL (NEGATIVE); URINE SPECIFIC GRAVITY 1.012; UROBILINOGEN,URINE NEGATIVE mg/dL (<2.0)
[2020-11-29] MEDS ORDERED: NORMAL SALINE 1000 ML 1,000 ML IV ONE (18:28)
[2020-11-29] MEDS ORDERED: ONDANSETRON HCL INJ/PF 4 MG/2 ML SDV IV ONE (18:41)
[2020-11-29] MEDS ORDERED: MORPHINE SULFATE 10 MG/ML INJ IV ONE (18:41)
--- NOTE | 2020-11-29 18:45 | ER Document Report ---
ED Medical Screen (RME) - General Chief Complaint: Syncope Stated Complaint: POSSIBLE SYNCOPE Time Seen by Provider: 11/29/20 18:24 Primary Care Provider: YAIR BRIZUELA MD [Primary Care Provider] - Follow up as needed Information source: Patient, Relative TRAVEL OUTSIDE OF THE [place] IN LAST 30 DAYS: No - HPI Patient complains to provider of: syncope, head injury, right sided pain Notes: 11/29/20 18:43 Patient here with complaints of syncopal episode. The patient states that this morning he was getting dressed to go burr picker his grandson when he had a syncopal episode. He states that he did not feel anything coming on. When he fell he hit the right side of his head. He does complain of a headache as well as neck pain. He is not on blood thinning medications. He is also complaining of right shoulder and right hip pain as well as low back pain. Patient has a prior history of hepatitis C as well as chronic renal disease. He denies any chest pain or shortness of breath at this time. No unilateral numbness, tingling, weakness. The patient has a prior history of stroke and TIA. Exam: No distress, nontoxic appearing. Lungs clear throughout. Hematoma to the right posterior scalp. Mild posterior cervical tenderness to palpation. No midline step-offs or crepitus. Tenderness to palpation of the right shoulder. Tenderness palpation to the right hip. Tenderness palpation to the lumbar spine. Nonfocal neuro exam. An initial examination was made on the patient as part of the triage process, and it was determined a more comprehensive evaluation was necessary. Initial orders were placed and patient was transferred to another provider in the ED who assumed care and finished evaluation and plan. - Related Data Allergies/Adverse Reactions: No Known Allergies Allergy (Verified 11/29/20 12:41) Home Medications: zoloft, novolog, symbicort, atorvastatin, lasix, gabapentin, losarten, levothyroxin Past Medical History - Social History Frequency of alcohol use: None Drug Abuse: None - Past Medical History Cardiac Medical History: Reports: Hx Coronary Artery Disease - HYPERLIPIDEMIA , Hx Hypertension Denies: Hx Heart Attack Pulmonary Medical History: Reports: Hx COPD - 2L oxygen QHS Denies: Hx Asthma, Hx Bronchitis, Hx Pneumonia Neurological Medical History: Reports: Hx Migraine. Denies: Hx Cerebrovascular Accident, Hx Seizures Endocrine Medical History: Reports: Hx Diabetes Mellitus Type 2, Hx Hypothyroidism Renal/ Medical History: Reports: Hx Renal Insufficiency. Denies: Hx Peritonea l Dialysis GI Medical History: Reports: Hx Cirrhosis Musculoskeltal Medical History: Denies Hx Arthritis Psychiatric Medical History: Reports: Hx Depression Past Surgical History: Reports: Hx Cholecystectomy - Immunizations Hx Diphtheria, Pertussis, Tetanus Vaccination: Yes Physical Exam - Vital signs Vitals: Temp Resp BP Pulse Ox 97.8 F 11 L 84/56 L 98 11/29/20 12:40 11/29/20 12:40 11/29/20 12:40 11/29/20 12:40 Course - Vital Signs Vital signs: Temp Pulse Resp BP Pulse Ox 97.8 F 66 17 102/60 100 11/29/20 12:40 11/29/20 12:43 11/29/20 15:00 11/29/20 14:30 11/29/20 14:30 - Laboratory Results Result Diagrams: 11/29/20 12:43 11/29/20 12:43 Laboratory Results Interpreted: 11/29/20 11/29/20 11/29/20 12:43 12:43 16:37 RBC 4.06 L Hgb 11.7 L Hct 33.8 L Plt Count 74 L Sodium 133.1 L Carbon Dioxide 20 L BUN 64 H Creatinine 2.24 H Est GFR ( Amer) 37 L Est GFR (MDRD) Non-Af 30 L Glucose 276 H ALT 75 H Alkaline Phosphatase 174 H Total Protein 6.0 L Albumin 3.2 L Urine Protein >=500 H Urine Glucose (UA) 150 H Urine Blood SMALL H Doctor's Discharge - Discharge Referrals: YAIR BRIZUELA MD [Primary Care Provider] - Follow up as needed
--- NOTE | 2020-11-29 19:37 | EKG REPORT ---
SEVERITY:- OTHERWISE NORMAL ECG - SINUS RHYTHM BORDERLINE LEFT AXIS DEVIATION : Confirmed by: Ailin Bean MD 29-Nov-2020 19:35:59
--- NOTE | 2020-11-29 19:54 | RADIOLOGY REPORT (SQ) ---
EXAM DESCRIPTION: CT HEAD WITHOUT IMAGES COMPLETED DATE/TIME: 11/29/2020 7:23 pm REASON FOR STUDY: syncope, head injury COMPARISON: None. TECHNIQUE: Axial images acquired through the brain without intravenous contrast. Images reviewed wi th bone, brain and subdural windows. Additional sagittal and coronal reconstructions were generated. Images stored on PACS. All CT scanners at this facility use dose modulation, iterative reconstruction, and/or weight based d osing when appropriate to reduce radiation dose to as low as reasonably achievable (ALARA). [facility]: Dose Right [facility]: CareDose [facility]: Dose Right [facility]: Teradose 4D [facility]: Smart [place] RADIATION DOSE: CT Rad equipment meets quality standard of care and radiation dose reduction techniq ues were employed. CTDIvol: 53.2 mGy. DLP: 911 mGy-cm. mGy. LIMITATIONS: None. FINDINGS: VENTRICLES: Normal size and contour. CEREBRUM: No masses. No hemorrhage. No midline shift. No evidence for acute infarction. Normal gra y/white matter differentiation. No areas of low density in the white matter. CEREBELLUM: No masses. No hemorrhage. No alteration of density. No evidence for acute infarction. EXTRAAXIAL SPACES: No fluid collections. No masses. ORBITS AND GLOBE: No intra- or extraconal masses. Normal contour of globe without masses. CALVARIUM: No fracture. PARANASAL SINUSES: No fluid or mucosal thickening. SOFT TISSUES: Subcutaneous hematoma in the left temporal/frontal area. OTHER: No other significant finding. IMPRESSION: Subcutaneous hematoma with no acute intracranial imaging findings. EVIDENCE OF ACUTE STROKE: NO. COMMENT: Quality ID # [id number]: Final reports with documentation of one or more dose reduction techniques (e.g., Automated exposure control, adjustment of the mA and/or kV according to patient size, use of iterative reconstruction technique) TECHNICAL DOCUMENTATION: JOB ID: [id number] 2010 [employer]- All Rights Reserved Reading location - IP/workstation name: [email or web address]
--- NOTE | 2020-11-29 20:00 | RADIOLOGY REPORT (SQ) ---
EXAM DESCRIPTION: SHOULDER RIGHT 2 OR MORE VIEWS IMAGES COMPLETED DATE/TIME: 11/29/2020 7:14 pm REASON FOR STUDY: syncope, head injury COMPARISON: None. NUMBER OF VIEWS: Three views. TECHNIQUE: Internal rotation, external rotation, and Y view images acquired of the right shoulder. LIMITATIONS: None. FINDINGS: MINERALIZATION: Normal. BONES: No acute fracture. No worrisome bone lesions. JOINTS: No dislocation. VISUALIZED LUNGS AND RIBS: No pneumothorax. No rib fracture. SOFT TISSUES: No radiopaque foreign body. OTHER: No other significant finding. IMPRESSION: NEGATIVE STUDY OF THE RIGHT SHOULDER. NO RADIOGRAPHIC EVIDENCE OF ACUTE INJURY. TECHNICAL DOCUMENTATION: JOB ID: [id number] 2010 [employer] All Rights Reserved Reading location - IP/workstation name: [email or web address]
--- NOTE | 2020-11-29 20:00 | RADIOLOGY REPORT (SQ) ---
EXAM DESCRIPTION: CT CERVICAL SPINE WITHOUT IMAGES COMPLETED DATE/TIME: 11/29/2020 7:23 pm REASON FOR STUDY: syncope, head injury COMPARISON: None. TECHNIQUE: Axial images acquired through the cervical spine without intravenous contrast. Images re viewed with lung, soft tissue and bone windows. Reconstructed coronal and sagittal MPR images review ed. Images stored on PACS. All CT scanners at this facility use dose modulation, iterative reconstruction, and/or weight based d osing when appropriate to reduce radiation dose to as low as reasonably achievable (ALARA). [facility]: Dose Right [facility]: CareDose [facility]: Dose Right [facility]: Teradose 4D [facility]: Smart [employer] RADIATION DOSE: CT Rad equipment meets quality standard of care and radiation dose reduction techniq ues were employed. CTDIvol: 25.2 mGy. DLP: 512 mGy-cm. mGy. LIMITATIONS: None. FINDINGS: ALIGNMENT: Anatomic. MINERALIZATION: Normal. VERTEBRAL BODIES: No fractures or dislocation. DISCS: There is narrowing of the disc space at C3-4 with irregularity of the vertebral endplates. Th ere is narrowing of the disc spaces from C5-C7. Minimal marginal osteophytes are present. FACETS, LATERAL MASSES, POSTERIOR ELEMENTS: No fractures. No dislocation. No acute findings. HARDWARE: None in the spine. VISUALIZED RIBS: No fractures. LUNG APICES AND SOFT TISSUES: No significant or acute findings. OTHER: No other significant finding. IMPRESSION: No acute finding. There are changes at C3-4 raising the possibility of prior discitis.D egenerative disc disease and mild spondylosis are seen. TECHNICAL DOCUMENTATION: JOB ID: [id number] Quality ID # [id number]: Final reports with documentation of one or more dose reduction techniques (e.g., Au tomated exposure control, adjustment of the mA and/or kV according to patient size, use of iterative reconstruction technique) 2010 [employer]- All Rights Reserved Reading location - IP/workstation name: [email or web address]
--- NOTE | 2020-11-29 20:01 | RADIOLOGY REPORT (SQ) ---
EXAM DESCRIPTION: HIP RIGHT AP/LATERAL IMAGES COMPLETED DATE/TIME: 11/29/2020 7:14 pm REASON FOR STUDY: syncope, head injury COMPARISON: None. NUMBER OF VIEWS: Two views. TECHNIQUE: AP pelvis and additional frog legview of the right hip. LIMITATIONS: None. FINDINGS: MINERALIZATION: Normal. RIGHT HIP: No fracture or dislocation. No worrisome bone lesions. LEFT HIP: No fracture or dislocation. No worrisome bone lesions. Limited views. PUBIS AND ISCHIUM: No fracture. PELVIS: No fracture. SACRUM: No fracture or dislocation. No worrisome bone lesions. LOWER LUMBAR SPINE: No fracture or dislocation. No worrisome bone lesions. No significant disc disea se. SOFT TISSUES: No findings. OTHER: No other significant finding. IMPRESSION: NEGATIVE STUDY OF THE RIGHT HIP. NO RADIOGRAPHIC EVIDENCE OF ACUTE INJURY. TECHNICAL DOCUMENTATION: JOB ID: [id number] 2010 [employer]- All Rights Reserved Reading location - IP/workstation name: [email or web address]
--- NOTE | 2020-11-29 20:03 | RADIOLOGY REPORT (SQ) ---
EXAM DESCRIPTION: L SPINE WHOLE IMAGES COMPLETED DATE/TIME: 11/29/2020 7:14 pm REASON FOR STUDY: syncope, head injury COMPARISON: None. NUMBER OF VIEWS: Five views including obliques. TECHNIQUE: AP, lateral, oblique, and sacral radiographic images acquired of the lumbar spine. LIMITATIONS: None. FINDINGS: MINERALIZATION: Normal. SEGMENTATION: Normal. No transitional anatomy. ALIGNMENT: Minimal scoliosis. VERTEBRAE: Maintained height. No fracture or worrisome bone lesion. DISCS: There is mild disc narrowing throughout lumbar spine sparing only the L3-4 level. Marginal os teophytes are present multiple levels. POSTERIOR ELEMENTS: Hypertrophic facet changes from L4-S1. HARDWARE: None in the spine. PARASPINAL SOFT TISSUES: Normal. PELVIS: Intact as visualized. No fractures or worrisome bone lesions. SI joints intact. OTHER: No other significant finding. IMPRESSION: Mild scoliosis. Degenerative disc disease. Spondylosis. Facet arthropathy. TECHNICAL DOCUMENTATION: JOB ID: [id number] 2010 [employer]- All Rights Reserved Reading location - IP/workstation name: [email or web address]
--- NOTE | 2020-11-29 20:14 | RADIOLOGY REPORT (SQ) ---
EXAM DESCRIPTION: Site: CHEST SINGLE VIEW RP: XR CHEST 1 VIEW CLINICAL HISTORY: 60 years Male; syncope; COMPARISON: 12/02/2017 FINDINGS: Lungs: Lungs are clear, with no focal infiltrate, pneumothorax, or pleural effusion. Mediastinum: Mediastinum is within normal limits for this positioning. Bones: Bony structures are unremarkable. IMPRESSION: 1. No acute pulmonary findings.
--- NOTE | 2020-11-29 21:18 | ER Document Report ---
ED General - General Chief Complaint: Syncope Stated Complaint: POSSIBLE SYNCOPE Time Seen by Provider: 11/29/20 18:24 Primary Care Provider: YAIR BRIZUELA MD [Primary Care Provider] - Follow up as needed TRAVEL OUTSIDE OF THE [place] IN LAST 30 DAYS: No - HPI Notes: Patient is a 60-year-old male with multiple medical comorbidities who presents to the emergency department for evaluation after syncopal episode. Evidently he was getting ready for the day when he took a few steps, started to feel dizzy and lightheaded, and had a syncopal episode. He did fall to the ground. He hit his head. He wrenched his shoulder and his right hip. He went to his doctor's office and had another near syncopal episode so he was sent here for further evaluation. The patient states that after some pain medicine and some IV fluids he is feeling normal. He denies any changes in his medications. He states he has had syncopal episodes like this in the past but it has been several months since he had them. He has a history of stroke, has some chronic right-sided weakness, denies any new neurological deficits at this time. He complains of pain in his neck, right shoulder, right hip, lower back. Is currently a 2 out of 5, was a 4 out of 5 at its worst. - Related Data Allergies/Adverse Reactions: No Known Allergies Allergy (Verified 11/29/20 12:41) Home Medications: zoloft, novolog, symbicort, atorvastatin, lasix, gabapentin, losarten, levothyroxin Past Medical History - General Information source: Patient, Relative - Social History Smoking Status: Former Smoker Frequency of alcohol use: None Drug Abuse: None Family History: Hypertension Patient has homicidal ideation: No - Past Medical History Cardiac Medical History: Reports: Hx Coronary Artery Disease - HYPERLIPIDEMIA , Hx Hypertension Denies: Hx Heart Attack Pulmonary Medical History: Reports: Hx COPD - 2L oxygen QHS Denies: Hx Asthma, Hx Bronchitis, Hx Pneumonia Neurological Medical History: Reports: Hx Cerebrovascular Accident, Hx Migraine. Denies: Hx Seizures Endocrine Medical History: Reports: Hx Diabetes Mellitus Type 2, Hx Hypothyroidism Renal/ Medical History: Reports: Hx Renal Insufficiency. Denies: Hx Peritoneal Dialysis GI Medical History: Reports: Hx Cirrhosis Musculoskeletal Medical History: Denies Hx Arthritis Psychiatric Medical History: Reports: Hx Depression Past Surgical History: Reports: Hx Cholecystectomy - Immunizations Hx Diphtheria, Pertussis, Tetanus Vaccination: Yes Hx Pneumococcal Vaccination: 08/01/17 Review of Systems - Review of Systems Constitutional: No symptoms reported EENT: No symptoms reported Cardiovascular: See HPI Respiratory: No symptoms reported Gastrointestinal: No symptoms reported Genitourinary: No symptoms reported Musculoskeletal: See HPI Skin: No symptoms reported Neurological/Psychological: No symptoms reported Physical Exam - Vital signs Vitals: Temp Resp BP Pulse Ox 97.8 F 11 L 84/56 L 98 11/29/20 12:40 11/29/20 12:40 11/29/20 12:40 11/29/20 12:40 - Notes Notes: This is a 60-year-old male who appears older than his stated age, no acute distress. Vital signs reviewed, please refer to chart. Head is normocephalic, atraumatic. Pupils equal round, reactive to light. Neck is supple without meningismus. Heart is regular rate and rhythm. Lungs are clear to auscultation bilaterally. Abdomen is soft, nontender, normoactive bowel sounds throughout. Extremities without cyanosis, clubbing. Posterior calves are nontender. Peripheral pulses are equal. Skin is warm and dry. Patient is awake, alert, oriented x3. Cranial nerves II - XII are grossly intact without focal neurological deficits. Strength is plus 5 out of 5 left upper and lower extremities, 3+ out of 5 right upper and right lower extremities. Sensation is intact. Mildly hyperreflexive at the biceps and patellar. Intact [id number], rapid alternating movements, [id number]. Course - Re-evaluation Re-evalutation: 11/29/20 21:21 Patient presents emergency department for evaluation. 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 He had IV established, laboratory investigations and imaging is ordered. EKG fails to show any signs of ischemia or infarction. His laboratory investigation showed chronic changes but nothing acute. His imaging shows again chronic changes, no acute signs of fracture or bleeding. I expla ined to the patient as well as his that x-rays can failed to reveal small acute fractures, and if his symptoms persist he may need further imaging. They voiced understanding. The patient was evaluated by myself in the ED and when I sat him up he did not have a significant change in his blood pressure. I do not think he was orthostatic. The patient would much prefer not to stay in the hosp ital, given the current state of the Covid pandemic I do believe that this is reasonable. The patient's is a [employer] she feels comfortable watching him at home. They are to have follow-up with Dr. Brizuela on Wednesday. They understand that if his symptoms return if he develops new or concerning symptoms they need to return immediately to the ER for further evaluation. 11/29/20 21:25 Please note that the patient was mildly hypotensive on arrival but remained normotensive throughout the course of his stay. He is not had any changes in his medicines, and his renal function, although abnormal, is near baseline. I do not suspect acute hypotension to be an ongoing issue at this time. - Vital Signs Vital signs: Temp Pulse Resp BP Pulse Ox 97.8 F 66 18 109/70 96 11/29/20 12:40 11/29/20 12:43 11/29/20 21:01 11/29/20 21:01 11/29/20 21:01 - Laboratory Results Result Diagrams: 11/29/20 12:43 11/29/20 12:43 Laboratory Results Interpreted: 11/29/20 11/29/20 11/29/20 12:43 12:43 16:37 RBC 4.06 L Hgb 11.7 L Hct 33.8 L Plt Count 74 L Sodium 133.1 L Carbon Dioxide 20 L BUN 64 H Creatinine 2.24 H Est GFR ( Amer) 37 L Est GFR (MDRD) Non-Af 30 L Glucose 276 H ALT 75 H Alkaline Phosphatase 174 H Total Protein 6.0 L Albumin 3.2 L Urine Protein >=500 H Urine Glucose (UA) 150 H Urine Blood SMALL H Critical Laboratory Results Reviewed: No Critical Results - Radiology Results Radiology Results Interpreted: 11/29/20 21:22 Chest X-Ray 11/29/20 18:28 IMPRESSION: 1. No acute pulmonary findings. Head CT 11/29/20 18:40 IMPRESSION: Subcutaneous hematoma with no acute intracranial imaging findings. EVIDENCE OF ACUTE STROKE: NO. Cervical Spine CT 11/29/20 18:41 IMPRESSION: No acute finding. There are changes at C3-4 raising the possibility of prior discitis.Degenerative disc disease and mild spondylosis are seen. Hip/Pelvis X-Ray 11/29/20 18:41 IMPRESSION: NEGATIVE STUDY OF THE RIGHT HIP. NO RADIOGRAPHIC EVIDENCE OF ACUTE INJURY. Lumbar Spine X-Ray 11/29/20 18:41 IMPRESSION: Mild scoliosis. Degenerative disc disease. Spondylosis. Facet arthropathy. Shoulder X-Ray 11/29/20 18:41 IMPRESSION: NEGATIVE STUDY OF THE RIGHT SHOULDER. NO RADIOGRAPHIC EVIDENCE OF ACUTE INJURY. Critical Radiology Results Reviewed: No Critical Results Discharge - Discharge Clinical Impression: Syncope and collapse, Closed head injury, Cervical strain, acute, Right shoulder strain, Contusion of right hip Condition: Stable Disposition: HOME, SELF-CARE Instructions: Contusion ([facility]), Neck Injury (Cervical Strain) ([facility]), Syncopal Episode ([facility]) Additional Instructions: Continue your home medications as prescribed previously. No clear cause was found for your syncopal episode today. Follow-up with Dr. Brizuela as scheduled on Wednesday. If you have a another episode of syncope, or if you develop new or concerning symptoms of any sort, please return immediately to the emergency department for evaluation. Referrals: YAIR BRIZUELA MD [Primary Care Provider] - Follow up as needed
[2020-11-29 21:36] VITALS: BP 106/78
== END 2020-11-29 21:43 | disposition home or self-care (01) ==
LOC: ER 12:30
DX: R55 Syncope and collapse (principal); S16.1XXA Strain of muscle, fascia and tendon at neck level, initial encounter; S46.911A Strain of unspecified muscle, fascia and tendon at shoulder and upper arm level, right arm, initial encounter; S70.01XA Contusion of right hip, initial encounter; S09.90XA Unspecified injury of head, initial encounter; R53.1 Weakness; R42 Dizziness and giddiness; M25.511 Pain in right shoulder; M25.551 Pain in right hip; M54.5 Low back pain; W19.XXXA Unspecified fall, initial encounter; Z87.891 Personal history of nicotine dependence; Z79.4 Long term (current) use of insulin; Z79.899 Other long term (current) drug therapy; I25.10 Atherosclerotic heart disease of native coronary artery without angina pectoris; J44.9 Chronic obstructive pulmonary disease, unspecified; Z99.81 Dependence on supplemental oxygen; E11.9 Type 2 diabetes mellitus without complications
CPT/HCPCS: 93005; 99285; 96361; 96374; 96375; 36415; 82553; 82550; 85025; 80053; 81001; 84484; 71045; 73502; 72110; 73030; 70450; 72125; 93010; J2270; J2405; J7030